=== PATIENT | male | born 1945 | race Caucasian/White ===

== ENCOUNTER 2020-08-07 14:04 | Emergency (ER) | payer MEDICARE ==
[2020-08-07 15:09] LABS: HEMOGLOBIN 14.8 gm/dl (14.0-17.5); RED BLOOD COUNT 4.35 M/UL (4.20-5.50); WHITE BLOOD COUNT 7.6 K/UL (4.5-11.0)
[2020-08-07 15:38] LABS: BUN/CREATININE RATIO 23 (0-10)
[2020-08-07] MEDS ORDERED: VIBRAMYCIN 100100 MG PO (18:22)
== END 2020-08-07 20:55 | disposition home or self-care (01) ==
LOC: ER1 14:04
PROVIDERS: Student in an Organized Health Care Education/Training Program
DX: U07.1 COVID-19 (principal); E86.0 Dehydration; I10 Essential (primary) hypertension; Z79.899 Other long term (current) drug therapy
CPT/HCPCS: 0240U; 36415; 36600; 71045; 80053; 82550; 82553; 82803; 83874; 83880; 84484; 85025; 93005; 99285; J7120; M0239